=== PATIENT | male | born 1990 | race Caucasian/White ===

== ENCOUNTER → 2023-11-22 07:43 | Outpatient (REF) | payer MEDICARE, SELFPAY | LOC: HWRAD 07:43 | PROVIDERS: ATTENDING PHYSICIAN Surgery | DX: T14.8XXA Other injury of unspecified body region, initial encounter (principal) | CPT/HCPCS: 74177; Q9967 ==

== ENCOUNTER 2024-02-08 06:41 | Day surgery (SDC) | payer MEDICARE, SELFPAY ==
[2024-01-31 08:56] LABS: % Basophils 0.5 % (0-2); % Eosinophils 1.9 % (0-6); % Immature Granulocytes 0.2 % (0-0.5); % Lymphocytes 34.1 % (20.5-51.1); % Monocytes 9.4 % (1.7-9.3); % Neutrophils 53.9 % (42.2-75.2); Absolute Eosinophils 0.2 10^3/uL (0-0.7); Absolute Lymphocytes 2.9 10^3/uL (1.2-3.4); Absolute Monocytes 0.8 10^3/uL (0.1-0.6); Absolute Neutrophils 4.5 10^3/uL (1.4-6.5); Hematocrit 42.2 % (39.0-52.0); Hemoglobin 15.2 g/dL (13.0-18.0); Mean Corpuscular Hgb 31.5 pg (27.0-31.0); Mean Corpuscular Volume 87.4 fL (80.0-94.0); Mean Platelet Volume 9.8 fL (7.4-10.4); Nucleated Red Blood Cells % 0 % (-); Platelet Count 195 10^3/uL (130-400); Red Blood Cell Count 4.83 10^6/uL (4.70-6.10); Red Cell Dist. Width 11.9 % (11.5-14.5); White Blood Cell Count 8.4 10^3/uL (4.8-10.8)
[2024-01-31 09:20] LABS: ALT (SGPT) 25 U/L (0-50); AST (SGOT) 33 U/L (17-59); Albumin 4.6 g/dl (3.5-5.0); Alkaline Phosphatase 41 U/L (38-126); Blood Urea Nitrogen 25 mg/dl (9-20); Calcium 9.8 mg/dl (8.4-10.2); Carbon Dioxide 34 mmol/L (22-30); Chloride 98 mmol/L (98-107); Glucose 128 mg/dl (70-99); Potassium 5.4 mmol/L (3.5-5.1); Sodium 140 mmol/L (135-145); Total Bilirubin 1.1 mg/dl (0.2-1.3); Total Protein 7.3 g/dl (6.3-8.2); eGFR > 60.00
[2024-01-31 09:34] LABS: Glycohemoglobin (HgbA1c) 8.6 % (4.0-5.6)
[2024-01-31 10:12] VITALS: BMI 34.0
--- NOTE | 2024-02-03 10:25 | PTCARENOTE ---
Gracia in Dr. Solis's office made aware of Hgb A1C 8.6.
[2024-02-08] VITALS (13 sets, daily range): BP systolic 20–117; BP diastolic 59–89; BMI 34.0
[2024-02-08] MEDS: TYLENOL 1000 MG PO (06:37)
[2024-02-08 06:50] LABS: Glucose - Point of Care 124 mg/dl (70-99)
--- NOTE | 2024-02-08 07:25 | W.SUR.PREOP ---
Pre-Operative Surgical Note
-
I have examined this patient prior to the performance of the scheduled procedure.
The patient's condition is unchanged from the time of the current History and
Physical and the patient is able to undergo the scheduled procedure.
[2024-02-08 09:07] LABS: Glucose - Point of Care 137 mg/dl (70-99)
[2024-02-08 10:09] LABS: Glucose - Point of Care 141 mg/dl (70-99)
[2024-02-08] MEDS: DILAUDID 0.5 MG IV ×5 (10:18→11:20)
[2024-02-08] MEDS: ROXICODONE 10 MG PO (12:04)
--- NOTE | 2024-02-08 12:14 | W.IMMPOSTOP ---
Surgical Immed Post Op Note
-
Primary Surgeon: LORRI Solis MD
Assisting Surgeon:
Pre-op Diagnosis: Sacral pressure wound, unstageable
Post-op Diagnosis:Same
Procedure Performed: Excision of sacral pressure ulcer in preparation for flap; fasciocutaenous flap sacral wound closure
Anesthesia Type: GA
Specimen / Cultures: None
Estimated Blood Loss: 30cc
Complications: None
Operative Findings: As expected
--- NOTE | 2024-02-08 12:18 | OR.RPT ---
Operative Report
Operative Report
Date of surgery: 02/08/2024
Preoperative diagnosis: Sacral pressure wound, unstageable
Postoperative diagnosis: Same
Procedure:
1. Excision of sacral pressure wound in preparation for flap
2. Gluteal Fasciocutaneous flap closure of sacral wound
anesthesia: General
EBL: 30 cc
Complications: None
Indications for procedure: Patient is a 33-year-old male with a complicated medical history including COVID requiring prolonged intubation and hospitalization. He is known to the team here for history of ventral hernia with loss of domain for which
he underwent extensive complicated repair. He is now healed and is ambulatory and desires both correction of his persistent sacral wound as well as draining abdominal mesh. A plan was made for him to commit to nicotine cessation and to reconstruct
his sacral wound with a flap after excision. He will heal from this for a time and assuming he is able to heal this consideration can be given for complicated abdominal wall repair. Discussion was had about his options as were related to his
sacral wound. 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 If the bone was involved and ostectomy would be performed and he would require IV antibiotics. A
fasciocutaneous gluteal flap closure would then be performed to fill the resultant defect. Risks include scar, recurrent wound, infection, hematoma, seroma, need for repeat procedure. He understood these risks and desired to proceed. A plan was
made for prolonged offloading to minimize his risk of recurrent pressure causing wound breakdown. Preoperative labs were taken and nicotine test was negative.
Procedure in detail: Patient was identified preoperatively and the surgical site was confirmed to be the sacrum and gluteus. All questions were answered and consents were confirmed. Patient was taken back to the operating room and intubated
supine in the stretcher. He was then placed prone on the operating table ensuring that all pressure points were adequately supported. He was then prepped and draped in the usual sterile fashion using Betadine solution. Timeout for patient safety
was performed was confirmed that preoperative antibiotics have been administered and bilateral SCDs were in place. Procedure began with the injection 1% lidocaine with epinephrine in the proposed incisional sites. a william-shaped excisional
pattern was drawn around the fibrotic wound base and residual scar. An extension was made superiorly to incorporate gluteal cleft skin with remnant but not infected cystic disease. These measured approximately 8 to 9 cm on every limb informed
rhomboid shaped. A laterally and inferiorly based fasciocutaneous flap supplied by the gluteal artery perforators was then drawn out. A 15 blade was then used To incise the proposed markings. Bovie electrocautery was used to dissect out the
prior scar and wound base down to presacral fascia. The the bone of the sacrum was not clearly involved as of healthy vascular layer was maintained. As such the decision was made to not perform an ostectomy. The area of excisional debridement
extended to approximately 16 x 12 cm. After removing all devitalized and tethered tissue, the wound was checked for meticulous hemostasis and then irrigated with 3 L of normal saline. A 15 blade was then used to incise the skin markings for the
fasciocutaneous flap. Bovie electrocautery was used to dissect the flap down to the gluteus erin fascia. The fascia was incised and the flap was elevated in a subfascial position. The flap would be based on the inferior gluteal artery
perforators. dissection continued freeing the tissues until adequate flap excursion allowed for inset into the defect and a tension-free closure. A Gio drain was placed into the wound and the wound was closed in multiple layers including 0
Vicryl deep followed by 2-0 Vicryl's in the subcutaneous and deep dermis as well as 2-0 nylons and 0 chromic. These were performed in a running and intermittent fashion. after inset the skin of the flap had adequate cap refill and showed
punctate bleeding at the margins. The wound was dressed with antibiotic ointment ABDs and Medipore tape the patient was returned supine and extubated. Case was performed without complication and all counts were correct at the end the case. He was
taken the PACU for further care. Care was taken to offload on the stretcher and in the PACU.
[2024-02-08] MEDS: TYLENOL 650 MG PO (13:09)
== END 2024-02-08 13:40 | disposition home or self-care (01) ==
LOC: SDS 06:41
PROVIDERS: ATTENDING PHYSICIAN Surgery Plastic and Reconstructive Surgery
DX: L89.150 Pressure ulcer of sacral region, unstageable (principal); Z87.891 Personal history of nicotine dependence; Z86.16 Personal history of COVID-19
CPT/HCPCS: 15934; 13101; 36415; 80053; 82962; 83036; 85025; 87070; 93005; C1729